=== PATIENT | female | born 1935 | race Caucasian/White ===

== ENCOUNTER 2017-03-10 13:38 | Emergency (ER) | payer MEDICARE ==
[~2017-03-10] VITALS: Ht 157.5 cm; Wt 76.0 kg
[2017-03-10] MEDS ORDERED: SODIUM CHLORIDE 0.9% 1,000 ML IV ONE (13:47)
[2017-03-10] MEDS ORDERED: MECLIZINE CHEWABLE 25 MG TAB PO ONE (14:00)
[2017-03-10] MEDS ORDERED: ONDANSETRON 2MG/ML, 2ML IVPush ONE (14:00)
[2017-03-10] MEDS ORDERED: SODIUM CHLORIDE FLUSH 10ML SYR IVF ONE (14:00)
[2017-03-10] MEDS ORDERED: SODIUM CHLORIDE 0.9% 1,000ML IVBOLUS ONE (14:00)
[2017-03-10] MEDS ORDERED: OLME20TA PO (14:02)
[2017-03-10 14:41] LABS: ASPARTATE AMINO TRANSFERASE 26 U/L (15-37); BLOOD UREA NITROGEN 18 mg/dL (7-18)
[2017-03-10] MEDS ORDERED: MECLIZINE CHEWABLE 25 MG TAB ONE (14:42)
[2017-03-10] MEDS ORDERED: ONDANSETRON 2MG/ML, 2ML ONE (14:42)
[2017-03-10] MEDS ORDERED: PLEASE ENTER ALLERGIES MC SCH ×2 (15:30)
[2017-03-10] MEDS ORDERED: OMNIPAQUE 350 MG/ML, 100ML BOTTLE ONE (17:44)
[2017-03-10 17:52] LABS: PATH.CAST-FLAG NOT PRESENT; SPERM-FLAG NOT PRESENT; SRC-FLAG NOT PRESENT; XTAL-FLAG NOT PRESENT; YLC-FLAG NOT PRESENT
[2017-03-10 18:49] VITALS: BP 148/91
== END 2017-03-10 19:15 | disposition home or self-care (01) ==
LOC: ED 19:09
DX: K52.9 Noninfective gastroenteritis and colitis, unspecified (principal); K80.20 Calculus of gallbladder without cholecystitis without obstruction; K43.9 Ventral hernia without obstruction or gangrene; R42 Dizziness and giddiness; I10 Essential (primary) hypertension
CPT/HCPCS: 36415; 70450; 74022; 74177; 80053; 81001; 83690; 85025; 87086; 87324; 89055; 93005; 96361; 96374; 99285; J2405; J7030; Q9967